=== PATIENT | male | born 1935 | race Caucasian/White ===

== ENCOUNTER → 2018-02-15 09:27 | Outpatient (CLI) | payer MEDICARE, OTHER, SELFPAY ==
--- NOTE | 2018-02-15 | DI.US.S_ITS ---
PROCEDURE: US PERIPH VENOUS LOW EXTREM RT INDICATIONS: RIGHT CALF PAIN TECHNIQUE: Real-time imaging, as well as color and pulse Doppler interrogation, were performed of the lower extremity deep veins from the inguinal ligament to the popliteal fossa. COMPARISON: None. FINDINGS: The deep veins are normally compressible, and free of intraluminal thrombus. Color and pulse Doppler demonstrate normal phasic intraluminal flow. There is normal augmentation response to distal compression maneuver. IMPRESSION: Negative for deep venous thrombosis. Dictated by: Emerson Chanel M.D. on 02/15/2018 at 9:54 Approved by: Emerson Chanel M.D. on 02/15/2018 at 9:54
== END ==
PROVIDERS: PCP Family Medicine; Visit Provider Family Medicine
DX: M79.661 Pain in right lower leg (principal)
CPT/HCPCS: 93971

== ENCOUNTER → 2018-04-05 09:35 | Outpatient (CLI) | payer MEDICARE, OTHER, SELFPAY ==
--- NOTE | 2018-04-05 | DI.MRI.S_ITS ---
PROCEDURE: MR LUMBAR SPINE WO CON INDICATIONS: LUMBAR RADICULOPATHY TECHNIQUE: Noncontrast sagittal T1 spin echo and T2 fast echo, sagittal STIR, axial T1 and T2 fast spin echo through the lumbar spine. In cases with scoliosis, additional coronal T2 fast spin echo may be performed. COMPARISON: [facility], , L-SPINE WITHOUT CONTRAST, 01/16/2016, 9:10. FINDINGS: Image quality: Diagnostic, with note made of motion artifact. Alignment and Curvature: There is normal bony alignment. Bone Marrow: Marrow is of normal overall signal. No acute vertebral body compression fractures. Apparent fatty metaplasia can be seen involving the sacrum. Spinal Cord: Conus medullaris terminates at the L1 level. Visualized cord demonstrates normal signal and size. Paraspinous Soft Tissues: No paravertebral masses. Simple appearing right renal cysts can be seen. T12-L1: No significant abnormality is seen. L1-L2: Mild loss of disc height is seen. Loss of disc signal is seen. Mild generalized disc bulge is seen. Mild facet joint hypertrophy is seen. There is mild to moderate left-sided and mild right-sided neural foraminal narrowing seen. Minimal central canal narrowing is seen. These degenerative changes are slightly progressed compared to 2016. L2-L3: The disc height is well-preserved. Loss of disc signal is seen at this level. At least moderate disc bulge is seen, which is eccentric to the right. Mild facet joint hypertrophy is seen. Moderate bilateral neural foraminal narrowing is seen, right worse than left. When comparison is made with the prior examination, these findings are similar. L3-L4: The disc height is well-preserved. Loss of disc signal is seen at this level. Moderate generalized disc bulge is seen. Mild facet joint hypertrophy is seen. There is moderate left-sided and at least moderate right-sided neural foraminal narrowing seen. These degenerative changes have progressed compared to 2016. L4-L5: The disc height is well-preserved. Loss of disc signal is seen at this level. Moderate generalized disc bulge is seen. Mild facet joint hypertrophy is seen. Moderate bilateral neural foraminal narrowing is seen. When comparison is made with the prior examination, these findings are similar. L5-S1: The disc height is well-preserved. Loss of disc signal is seen at this level. Along the posterior aspect of the disc, there is increased STIR signal seen, as on series 4 image 9. Mild generalized disc bulge is seen. Mild facet joint hypertrophy is seen. Minimal to mild bilateral neural foraminal narrowing is seen. No significant central canal narrowing is seen. The abnormal signal along the posterior aspect of the disc is slightly progressed compared to 2016. IMPRESSION: Multiple levels of lumbar spine degenerative change are seen, which have slightly progressed at the L1-L2 and L3-L4 levels compared to 2016. Increased abnormal STIR signal seen along the posterior aspect of the L5 disc. The significance of this is uncertain. Dictated by: Emerson Chanel M.D. on 04/05/2018 at 11:02 Approved by: Emerson Chanel M.D. on 04/05/2018 at 11:11
== END ==
PROVIDERS: PCP Family Medicine; Visit Provider Family Medicine
DX: M51.16 Intervertebral disc disorders with radiculopathy, lumbar region (principal); M51.17 Intervertebral disc disorders with radiculopathy, lumbosacral region
CPT/HCPCS: 72148

== ENCOUNTER → 2021-02-11 15:28 | Outpatient (CLI) | payer MEDICARE, OTHER, SELFPAY ==
--- NOTE | 2021-02-11 15:31 | DI.MRI.S_ITS ---
PROCEDURE: MR LUMBAR SPINE WO CON INDICATIONS: SCIATICA UNSPECIFIED SIDE TECHNIQUE: Noncontrast sagittal T1 spin echo and T2 fast echo, sagittal STIR, axial T1 and T2 fast spin echo through the lumbar spine. In cases with scoliosis, additional coronal T2 fast spin echo may be performed. COMPARISON: [facility], MR, MR LUMBAR SPINE WO CON, 04/05/2018, 10:08. FINDINGS: Image quality: Excellent. Alignment and Curvature: There is normal bony alignment. Bone Marrow: Marrow is of normal overall signal. No acute vertebral body compression fractures. Spinal Cord: Conus medullaris terminates at the L1 level. Visualized cord demonstrates normal signal and size. Paraspinous Soft Tissues: No paravertebral masses. T12-L1: Normal appearance. L1-L2: Disc height is preserved. There are mild hypertrophic facet joints. Trace circumferential disc bulge and no central stenosis present. There is mild bilateral foraminal stenosis, similar prior. L2-L3: Disc height is preserved. Mild circumferential disc bulge is asymmetric to the right. Minimal hypertrophic facet joints present. Moderate bilateral foraminal stenosis, stable from the prior. Mild effacement of the lateral recesses. Mild central stenosis. L3-L4: Disc height is preserved. There is a circumferential disc bulge and minimal hypertrophic facet joints present. Mild ligamentum flavum laxity all combine to result in mild central stenosis and effacement of the lateral recesses. Moderate bilateral foraminal stenosis noted. L4-L5: Disc height is preserved. There is a circumferential disc bulge and hypertrophic facet joints present resulting in mild central stenosis and moderate bilateral foraminal stenosis, greater on the left L5-S1: Mild disc height loss and circumferential disc bulge. High-intensity zone in the posterior annulus is again noted, likely reflecting radial annular fissure or tear. No central stenosis present. Minimal bilateral foraminal stenosis noted. IMPRESSION: 1. Multilevel degenerative disc disease and arthropathy resulting in moderate bilateral foraminal stenosis L2-3, L3-4 and L4-5, stable from the prior exam. 2. Stable high-intensity zone in the L5-S1 posterior annulus is nonspecific but could reflect radial annular fissure or tear Approved by: Daniel Bullock M.D. on 02/11/2021 at 17:24
== END ==
PROVIDERS: Referring Provider Student in an Organized Health Care Education/Training Program; Visit Provider Student in an Organized Health Care Education/Training Program
DX: M51.16 Intervertebral disc disorders with radiculopathy, lumbar region (principal); M51.17 Intervertebral disc disorders with radiculopathy, lumbosacral region; M47.26 Other spondylosis with radiculopathy, lumbar region; M48.061 Spinal stenosis, lumbar region without neurogenic claudication
CPT/HCPCS: 72148

== ENCOUNTER → 2021-07-10 10:24 | Outpatient (CLI) | payer MEDICARE, OTHER, SELFPAY ==
--- NOTE | 2021-07-10 | DI.RAD.S_ITS ---
PROCEDURE: XR HIP W PEL IF DONE RT 2V INDICATIONS: right hip pain TECHNIQUE: AP pelvis with lateral view(s) of the right hip(s). COMPARISON: None. FINDINGS: Bones: No fractures or dislocations. Pelvic ring appears intact. No suspicious bony lesions. Bilateral hip osseous hypertrophy compatible with osteoarthritis. Soft tissues: The visualized bowel gas pattern is normal. Coarse calcifications noted over the midline lower pelvis which are likely related to uterine fibroid. IMPRESSION: Mild bilateral hip osteoarthritis. No fracture. No acute osseous lesion. If symptoms and/or clinical suspicion for pathology persists, further assessment with repeat radiographs (7-10 days) or advanced imaging (e.g. CT, MRI or bone scan) should be considered. Dictated by: Kelley Ornelas MD, PhD on 07/10/2021 at 13:19 Approved by: Kelley Ornelas MD, PhD on 07/10/2021 at 13:20
== END ==
PROVIDERS: PCP Student in an Organized Health Care Education/Training Program; Referring Provider Student in an Organized Health Care Education/Training Program; Visit Provider Student in an Organized Health Care Education/Training Program
DX: M16.0 Bilateral primary osteoarthritis of hip (principal); M25.551 Pain in right hip
CPT/HCPCS: 73502

== ENCOUNTER → 2024-07-01 12:02 | Outpatient (CLI) | payer MEDICARE, OTHER, SELFPAY ==
--- NOTE | 2024-07-01 12:05 | DI.RAD.S_ITS ---
PROCEDURE: XR CHEST 2V INDICATIONS: COUGH TECHNIQUE: 2 views of the chest were acquired. COMPARISON: None. 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 Lungs and pleura: Increased bronchovascular markings in bilateral hilar region are seen with bronchial wall thickening. No definite focal infiltrate. No pleural effusions or pneumothorax. Mediastinum: Mediastinal contours are normal. Heart size is enlarged. Bones and chest wall: No suspicious bony abnormalities. Soft tissues appear unremarkable. IMPRESSION: Suggestion of reactive airway disease such as bronchitis or viral illness. No definite focal infiltrate. No pleural effusion or pneumothorax. Dictated by: Jd Wright M.D. on 07/01/2024 at 15:12 Approved by: Jd Wright M.D. on 07/01/2024 at 15:24
== END ==
LOC: RAD 12:04
PROVIDERS: PCP Family Medicine; Referring Provider Family Medicine; Visit Provider Family Medicine
DX: R05.1 Acute cough (principal); R04.2 Hemoptysis; I51.7 Cardiomegaly; Z95.0 Presence of cardiac pacemaker
CPT/HCPCS: 71046